=== PATIENT | female | born 1980 | race Caucasian/White ===

== ENCOUNTER 2019-11-18 08:04 | Emergency (ER) | payer SELFPAY ==
[~2019-11-18] VITALS: Ht 170.2 cm; Wt 86.4 kg
[2019-11-18 08:08] VITALS: Ht 170.2 cm; Wt 86.4 kg
[2019-11-18] MEDS ORDERED: [UNRECOGNIZED DRUG - OTHER] (08:10)
[2019-11-18 08:45] LABS: BILIRUBIN NEGATIVE (NEGATIVE); GLUCOSE NEGATIVE (NEGATIVE); KETONE NEGATIVE (NEGATIVE); NITRITE NEGATIVE (NEGATIVE); SPECIFIC GRAVITY 1.025 (1.005-1.020); UROBILINOGEN NORMAL (NORMAL)
[2019-11-18 08:50] LABS: BACTERIA FEW /hpf (NEGATIVE); EPITHELIAL CELLS 0-5 /hpf (0-5); RED CELLS - URINE 0-5 /hpf (0-5); WHITE CELLS - URINE 0-5 /hpf (NEGATIVE)
[2019-11-18 09:21] LABS: HEMATOCRIT 39.2 % (36.0-48.0); HEMOGLOBIN 13.2 g/dL (12-16); LYMPHOCYTES 27.5 % (15-50); MCH 29.3 pg (26.0-34.0); MCHC 33.7 g/dL (31.0-37.0); MCV 87.1 fL (80.0-100.0); NEUTROPHILS 65.9 % (40-80); PLATELET COUNT 208 10x3/uL (130-400); RDW 12.9 % (11.5-14.5); WBC 6.9 10x3/uL (4.8-10.8)
[2019-11-18 09:27] LABS: CALC OSMOLALITY 276 mosm/kg (275-300); CALCIUM 8.1 mg/dL (8.5-10.1); CARBON DIOXIDE 23.7 mmol/L (21.0-32.0); CHLORIDE - SERUM 107 mmol/L (98-107); CREATININE - SERUM 0.8 mg/dL (0.6-1.3); GLUCOSE 98 mg/dL (74-106); POTASSIUM - SERUM 3.8 mmol/L (3.5-5.1); SODIUM 139 mmol/L (136-145); UREA NITROGEN 11 mg/dL (7-18); eGFR NON AFRICAN AMERICAN 85 mL/min (90-120)
[2019-11-18 09:36] LABS: ALBUMIN 3.4 g/dL (3.4-5.0); ALKALINE PHOSPHATASE 47 U/L (30-120); ALT (SGPT) 22 U/L (10-68); AMYLASE - SERUM 63 U/L (25-115); BILIRUBIN - TOTAL 0.23 mg/dL (0.2-1.3); LIPASE 261 U/L (73-393); PROTEIN - SERUM 6.4 g/dL (6.4-8.2)
[2019-11-18 09:40] LABS: TROPONIN-I < 0.017 ng/mL (0.000-0.060)
[2019-11-18 09:43] LABS: HCG SERUM NEGATIVE (NEGATIVE)
[2019-11-18] MEDS ORDERED: MIRALAX17 GM PO (10:46)
[2019-11-18] MEDS ORDERED: MILK OF MAGNESI30 ML PO (10:46)
[2019-11-18] MEDS ORDERED: ZOFRAN ODT4 MG/UDTAB PO (10:57)
[2019-11-18] MEDS ORDERED: LEVSIN/ANASP0.125 MG PO (10:57)
[2019-11-18 12:17] VITALS: BP 120/87
== END 2019-11-18 12:17 | disposition home or self-care (01) ==
LOC: D.ER 08:04
PROVIDERS: Family Medicine
DX: R10.11 Right upper quadrant pain (principal); K59.00 Constipation, unspecified; K76.9 Liver disease, unspecified; K21.9 Gastro-esophageal reflux disease without esophagitis